=== PATIENT | female | born 1990 | race Asian ===

== ENCOUNTER 2020-02-26 15:08 | Inpatient (IN) | payer MEDICAID, OTHER ==
[~2020-02-26 15:08] MED LIST: Bupivacaine 0.25% HCL 30 ML VIAL ONE; Bupivacaine HCl 0.5%/Epinephrine 1:200,000/PF 30 ml Vial ONE; Bupivacaine/Epinephrine 0.25% 30 ML VIAL ONE; EPHEDRINE 25 MG/5 ML SYRINGE ONE; Lidocaine 2% MPF 10 ML AMP (For Epidural Use) ONE
[2020-02-26] MEDS ORDERED: Methylergonovine 0.2 MG TAB PO PRN (20:23)
[2020-02-26] MEDS ORDERED: Acetaminophen 500 MG TAB PO PRN (20:23)
[2020-02-26] MEDS ORDERED: Milk Of Magnesia 30 ML UDCUP PO PRN (20:23)
[2020-02-26] MEDS ORDERED: Methylergonovine 0.2 MG/ML VIAL IM PRN (20:23)
[2020-02-26] MEDS ORDERED: Promethazine HCl 25 MG/ML VIAL IM PRN (20:23)
[2020-02-26] MEDS ORDERED: Bisacodyl 10 MG SUPP PR PRN (20:23)
[2020-02-26] MEDS ORDERED: Ondansetron PF 4 MG/2 ML Vial IVP PRN (20:23)
[2020-02-26] MEDS ORDERED: hydrALAZINE 20 MG/ML VIAL SLOW IVP PRN (20:23)
[2020-02-26] MEDS ORDERED: Docusate Calcium (SURFAK) 240 MG CAP PO SCH (21:00)
--- NOTE | 2020-02-26 21:33 | PDOC.FPROB ---
FMR OB H&P: HPI - History of Present Illness Chief Complaint: mIOL for A2GDM History of Present Illness: Pt is a 29yo @ 37.4wks by 8.3wk delmi who presents for mIOL due to A2GDM. She was late to care, originally receiving care in [place]. She denies any LOF, vag bleeding, discharge, dysuria, headache, NVD, vision changes, LE swelling. + FM. Patient does desire epidural. She has been taking metformin for her A2GDM. Primary Care Physician: ANASTSAIA Champion FMR OB H&P: Current - Care : 1 Para: 0 Gestational age: 37.4 Due date: 03/14/20 Dating Criteria: 8.3 wk ziyado Course/Complications: A2GDM, obesity, gHTN, late to care - OB Labs Blood type: B RH: positive Antibody Screen: negative HIV: negative RPR: negative HepBsAg: negative Rubella: immune Gonorrhea: negative Chlamydia: negative Pap Smear: NILM. 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 NILM - Surgical History Sx History: tonsillectomy - Social History Social History: no T/A/D - Family History Family History: ovarian and breast cancer, father with lauren ataxia, one family member with congenital hearing loss FMR OB H&P: Medications - Current Home Medications: Medication Instructions Recorded Confirmed Type 21/Iron Fu/Folic Acid 1 tablet PO DAILY 02/26/20 02/26/20 History [ Complete Caplet] metFORMIN [Glucophage] 500 mg PO BID-WM 02/26/20 02/26/20 History Allergies/Adverse Reactions: Allergies Allergy/AdvReac Type Severity Reaction Status Date / Time No Known Allergies Allergy Verified 02/26/20 19:36 FMR OB H&P: ROS - Review of Systems General: denies: fever/chills, weight/appetite/sleep changes, night sweats, fatigue Eyes: denies: vision changes, scotomas, floaters ENT: denies: nasal congestion, rhinorrhea, sinus pain/pressure, sore throat Cardiovascular: denies: chest pain, palpitation, edema Respiratory: denies: cough, congestion, shortness of breath Gastrointestinal: denies: abdominal pain, nausea, vomiting, diarrhea, constipation Genitourinary (Female): denies: dysuria, vaginal discharge, vaginal pain, vaginal bleeding, contractions, vaginal pressure Musculoskeletal: denies: pain, tenderness, swelling Integumentary: denies: itching, rash Breast: denies: skin changes FMR OB H&P: Vital Signs - Heart Tones Baseline: 150 Variability: moderate Acceleration: absent Deceleration: absent Category: category 1 [place] contractions every: irregular FMR OB H&P: Physical Exam - Physical Exam General: NAD, awake, alert and oriented HEENT: normocephalic and atraumatic, PERRLA, EOMI, MMM Neck: supple, FROM Chest: non-tender to palpation Heart: RRR, normal S1/S2, no murmurs/rubs/gallops General: CTAB, no respiratory distress, good air movement, no rales/rhonchi, no wheezing, no retractions Abdomen: soft, gravid, non-tender Musculoskeletal: FROM in all four extremities Skin: no rash, good tugor, capillary refill <2 seconds Psychiatric: intact recent and remote memory, good judgement and insight, normal mood and affect - Pelvic Exam SVE: 250/-2 Rob score: 4 Membranes: intact FMR OB H&P: A/P Discussion: Date/Time: 02/26/202016 #mIOL for A2GDM - admit to L&D for mIOL - SVE 2/50/-2, rob score of 4. Will start with cytotec - Monitor FHT; currently 150s, mod variability, cat 1 - US for EFW due to concern for LGA. Previous US 1 week ago with FW of 3200g. - Desires epidural #A2GDM - monitor sugars q4hr, SS for sugars > 110 - hold metformin #Obesity - aware #gHTN - Monitor BPs for severe range. So far at goal. If severe range, will work up for Pre-E. This H&P was discussed with Dr. Bernice Najera and Dr. Gómez Nagel who agree with the above documentation and plan. Patient is a 29yo here for mIOL due to A2GDM, uncontrolled. Will admit to L &D for labor. Will get US with EFW. Rob score of 4 with SVE of 2/50/-2. Will likely start with cytotech if EFW <4500g. Will recheck in 4 hours. Will check sugars q4hrs and give SS as needed for sugars >110. Will monitor BPs, so far BPs at goal. Discussed with Dr. Nagel. --- Bernice Najera MD Addendum - Attending - Attending Attestation Date/Time: 02/27/20 6236 I discussed the management with Dr. Delcid last night and personally evaluated the patient with Dr Hauser this morning. I agree with the History, Examination, Assessment and Plan documented above with any addition or exceptions noted below. Cervix remains unfavorable. Repeat dose of cytotex. Patient may have epidural when she is ready.
[2020-02-26 21:38] VITALS: BMI 32.5
[2020-02-26 21:57] LABS: Hemoglobin 13.9 g/dL (12.0-16.0); Mean Corpuscular Hemoglobin 31.3 pg (27.0-31.0); Mean Corpuscular Volume 92.1 fL (78.0-98.0); Mean Platelet Volume 10.2 fL (7.4-10.4); Platelet Count 177 thou/uL (130-400); RBC Distribution Width 12.4 % (11.5-14.5); Red Blood Cell (RBC) Count 4.45 mill/uL (4.20-5.40); White Blood Cell (WBC) Count 9.2 thou/uL (4.8-10.8)
[2020-02-26] MEDS ORDERED: NS / Oxytocin 40 units/1000ml 1,000 ML IV SCH (22:00)
[2020-02-26 22:06] LABS: Glucose 86 mg/dL (70-105)
[2020-02-26] MEDS ORDERED: Lidocaine 1% (PF) 30 ML VIAL SC PRN (22:19)
[2020-02-26] MEDS ORDERED: NS / Oxytocin 40 units/1000ml 1,000 ML IV PRN (22:19)
[2020-02-26 22:26] LABS: HBSAg Index 0.14 S/CO (0-0.99); Hep B Surf Ag Non-Reactive S/CO (NonReactive); Syphilis Antibody Nonreactive (Nonreactive); Syphilis Antibody Index 0.02 S/CO (<1.00 Non-Reactive)
[2020-02-26] MEDS: Misoprostol 100 MCG TAB VAG SCH (22:50)
--- NOTE | 2020-02-27 02:49 | PDOC.LDPN ---
Labor & Delivery Progress Note - Subjective Subjective: comfortable - Objective Vital signs reviewed and normal: yes General: NAD, resting Uterine fundus: non tender SVE: 250/-3 FHT: category 1, variability present [place] contractions every: irregular -: #mIOL for A2GDM not well controlled and Gest HTN. - admit to L&D for mIOL - SVE 250/-2, unchanged from previous check, rob score of 4, gave 2nd dose of cytotec - Monitor FHT; currently 150s, mod variability, cat 1 - US for EFW 3400g - Desires epidural #A2GDM - monitor sugars q4hr, SS for sugars > 110 - hold metformin - most recent BS 96 #Obesity - aware #gHTN - Monitor BPs for severe range. So far at goal. If severe range, will work up for Pre-E.
[2020-02-27] MEDS ORDERED: Butorphanol Tartrate 1 MG/ML VIAL ONE (07:36)
[2020-02-27] MEDS: Lactated Ringer's 1,000 ML IV SCH ×3 (07:45→13:09)
[2020-02-27] MEDS ORDERED: Misoprostol 100 MCG TAB VAG ONE (07:49)
[2020-02-27] MEDS ORDERED: Butorphanol Tartrate 1 MG/ML VIAL SLOW IVP ONE (07:49)
[2020-02-27] MEDS: Misoprostol 100 MCG TAB VAG SCH (07:57)
[2020-02-27] MEDS ORDERED: Ferrous Sulfate 325 MG TAB PO SCH (08:00)
--- NOTE | 2020-02-27 08:44 | PDOC.LDPN ---
Labor & Delivery Progress Note - Subjective Subjective: other (mild abd pain) - Objective Vital signs reviewed and normal: yes General: NAD, resting Dilation: 2 Effacement: 50% Station: -3 FHT: category 1 [place] contractions every: uterine irritability Plan: continue plan of care, labor augmentation -: #mIOL for A2GDM not well controlled and Gest HTN. - SVE 250/-2 ([place] 3-4). Unchanged, will give cytotec #3 - FHT: Cat I/ [place]: Uterine irritability - US for EFW 3400g - Desires epidural - stadol x1 for some uterine discomfort #A2GDM - monitor sugars q4hr, SS for sugars > 110 - hold metformin - most recent BS 96 #Obesity - aware #gHTN - Monitor BPs for severe range. So far at goal. If severe range, will work up for Pre-E.
[2020-02-27] MEDS ORDERED: Adacel (T-DAP) 0.5 ML SYRINGE IM ONE (09:00)
--- NOTE | 2020-02-27 09:14 | ULT ---
OB ULTRASOUND: Date: 02/26/2020 PROVIDED CLINICAL HISTORY: Gestational diabetes. FINDINGS: No comparisons. A single, live intrauterine gestation is documented in vertex presentation, with estimated gestationa l age based on ultrasound of 38 weeks and 6 days. Estimated weight is 3490 +/- 517 gm. Placenta is anteriorly located without evidence for previa. Amniotic fluid volume appears adequate for gestat ional age. anatomic survey was not performed. Biometry: BPD: 9.6 cm, 39 weeks/0 days HC: 33.9 cm, 39 weeks/0 days AC: 33.4 cm, 37 weeks/2 days FL: 7.9 cm, 40 weeks/2 days heart rate of 133 beats/minute is documented. The traveling crane operator indicates movement was identified. IMPRESSION: Single, live intrauterine gestation as described above. POS: REILLY
--- NOTE | 2020-02-27 11:36 | PDOC.LDPN ---
Labor & Delivery Progress Note - Subjective Subjective: comfortable - Objective Vital signs reviewed and normal: yes General: NAD, resting Uterine fundus: non tender Dilation: 3 Effacement: 75% Station: -2 FHT: category 1 [place] contractions every: uterine irritability Plan: pitocin for augmentation -: #mIOL for A2GDM not well controlled and Gest HTN. - SVE 2/50/-2 ([place] 3-4). Unchanged, will give cytotec #3 - SVE /75/-2 ([place] 8). Will start pitocin, titrate as necessary - FHT: Cat I/ [place]: uterine irritability - US for EFW 3400g - Desires epidural - stadol x1 for some uterine discomfort #A2GDM - monitor sugars q4hr, SS for sugars > 110 - hold metformin - most recent BS 91 #Obesity - aware #gHTN - Monitor BPs for severe range. So far at goal. If severe range, will work up for Pre-E.
[2020-02-27] MEDS ORDERED: NS w/ Oxytocin 10 units 500 ML IV SCH (11:45)
[2020-02-27] MEDS ORDERED: Fentanyl 4 mcg/Bup 0.1% Cadd 100 ML ONE ×2 (11:54→21:15)
[2020-02-27] MEDS ORDERED: diphenhydrAMINE 50 MG/ML VIAL IVP PRN (13:04)
[2020-02-27] MEDS ORDERED: Acetaminophen 325 MG TAB PO PRN (13:04)
[2020-02-27] MEDS ORDERED: Naloxone HCl 0.4 mg/ml Vial IVP PRN ×2 (13:04)
[2020-02-27] MEDS ORDERED: EPHEDRINE 25 MG/5 ML SYRINGE SLOW IVP PRN (13:04)
[2020-02-27] MEDS ORDERED: Promethazine HCl 25 MG/ML VIAL IM PRN (13:04)
[2020-02-27] MEDS ORDERED: Lactated Ringer's 500 ML IV PRN (13:04)
[2020-02-27] MEDS ORDERED: Ondansetron PF 4 MG/2 ML Vial IVP PRN (13:04)
[2020-02-27] MEDS ORDERED: Communication Order-Pharmacy FS SCH (13:15)
[2020-02-27] MEDS: Fentanyl 4 mcg/Bupivacaine 0.1% Cassette 100 ML EPIDURAL SCH ×2 (13:18→21:20)
--- NOTE | 2020-02-27 15:24 | PDOC.LDPN ---
Labor & Delivery Progress Note - Subjective Subjective: comfortable - Objective Vital signs reviewed and normal: yes General: NAD Uterine fundus: non tender Dilation: 3 Effacement: 75% Station: -2 FHT: category 2 [place] contractions every: every 3-4 minutes Plan: continue plan of care -: #mIOL for A2GDM not well controlled and Gest HTN. - SVE 2/50/-2 ([place] 3-4). Unchanged, will give cytotec #3 - SVE /75/-2 ([place] 8). Will start pitocin, titrate as necessary - SVE: /75/-2. Pit at 8 - FHT: Cat I/ [place]: 140s, minimal variability, no accels, cat II -- will give patient juice - US for EFW 3400g - Desires epidural - stadol x1 for some uterine discomfort #A2GDM - monitor sugars q4hr, SS for sugars > 110 - hold metformin - most recent BS 79 #Obesity - aware #gHTN - Monitor BPs for severe range. So far at goal. If severe range, will work up for Pre-E.
[2020-02-27 16:03] LABS: SARS-CoV-2 MS2 Positive; SARS-CoV-2 N Gene Negative; SARS-CoV-2 S Gene Negative; SARS-CoV-2 by NAA Not Detected (NotDetected); SARS-CoV-2 orf1ab Negative
[2020-02-27] MEDS ORDERED: Fentanyl 100 MCG/2 ML VIAL ONE ×2 (17:13→19:32)
--- NOTE | 2020-02-27 20:59 | PDOC.LDPN ---
Labor & Delivery Progress Note - Subjective Subjective: comfortable - Objective Abnormal vital signs: HR 125 General: NAD, resting, breathing through contractions Dilation: 3 Effacement: 75% Station: -2 FHT: category 1 [place] contractions every: 1-3 minutes Other exam findings: SROM with trace meconium @ cervical check @ ~1800 IUPC placed: yes Resuscitative measures: maternal IV fluids Plan: pitocin for augmentation -: #mIOL for uncontrolled A2GDM and gHTN - SVE /-2 @ 1800 & pit temporarily dc'd 08/02 intractable pain from inadequate anesthesia. SROM shortly before last cervical check with trace meconium stained fluid noted per nurse. - New epidural now in place & patient MUCH more comfortable. IUPC placed and patient having inadequate contractions. Will restart pitocin & titrate to achieve adequate contractions as tolerated by the patient & fetus. - Current FHTs: Cat I, baseline 140s, moderate variability, + accels, no decels #A2GDM - monitor sugars q4hr, SS for sugars > 110 - hold metformin - most recent BS 90 @ ~1600 #Obesity - aware #gHTN - Monitor BPs for severe range. So far at goal. If severe range, will work up for Pre-E & give PRN meds. Dispo: Will recheck in ~2 hours to assess for cervical change. Addendum - Attending - Attending Attestation Date/Time: 02/27/202114 I personally evaluated the patient and discussed the management with Dr. Champion. I agree with the History, Examination, Assessment and Plan documented above with any addition or exceptions noted below. We reviewed the care plan with Lakia and Luis Manuel. They are relieved that the new epidural is working well.
--- NOTE | 2020-02-28 03:31 | PDOC.LDPN ---
Labor & Delivery Progress Note - Subjective Subjective: painful contractions - Objective Vital signs reviewed and normal: yes General: NAD Uterine fundus: non tender Dilation: 9 Effacement: 100% Station: 0 FHT: category 1 AROM: meconium stained fluid IUPC placed: yes Resuscitative measures: maternal IV fluids, maternal position change Plan: continue plan of care, labor augmentation, pitocin for augmentation -: #mIOL for uncontrolled A2GDM and gHTN - SVE /-2 @ 1800 & pit temporarily dc'd 2/2 intractable pain from inadequate anesthesia. SROM shortly before @ 1575 cervical check with trace meconium stained fluid noted per nurse. - New epidural now in place & patient much more comfortable. IUPC placed. Pit restarted to titrate to achieve adequate contractions as tolerated by the patient & fetus. - Current FHTs: Cat I, baseline 140s, moderate variability, + accels, no decels #A2GDM - monitor sugars q4hr, SS for sugars > 110 - hold metformin - most recent BS 90 @ ~1600 #Obesity - aware #gHTN - Monitor BPs for severe range. So far at goal. If severe range, will work up for Pre-E & give PRN meds. Dispo: Will recheck in ~1 hours to assess for cervical change.
[2020-02-28] MEDS ORDERED: Fentanyl 4 mcg/Bup 0.1% Cadd 100 ML ONE (03:46)
[2020-02-28] MEDS: Fentanyl 4 mcg/Bupivacaine 0.1% Cassette 100 ML EPIDURAL SCH (03:53)
[2020-02-28] MEDS ORDERED: Fentanyl 100 MCG/2 ML VIAL ONE ×2 (05:09→11:48)
[2020-02-28] MEDS ORDERED: Azithromycin 500 MG VIAL ONE (10:14)
[2020-02-28] MEDS ORDERED: CEFAZOLIN 2 GM in Premix Bag 1 BAG IVPB SCH (10:15)
[2020-02-28] MEDS ORDERED: Azithromycin 500 MG in Sodium Chloride 0.9% 250 ML 250 ML IVPB SCH (10:15)
[2020-02-28] MEDS ORDERED: Bicitra 30 ML UDCUP PO SCH (10:15)
[2020-02-28] MEDS ORDERED: Oxytocin 10 UNITS/ML VIAL ONE (10:28)
[2020-02-28] MEDS ORDERED: EPHEDRINE 25 MG/5 ML SYRINGE ONE (10:28)
[2020-02-28] MEDS ORDERED: PROPOFOL 0 ML ONE (10:28)
[2020-02-28] MEDS ORDERED: MORPHINE 5 MG/10 ML PF VIAL ONE (10:28)
[2020-02-28] MEDS ORDERED: Ketorolac Tromethamine 30 MG/ML VIAL ONE (10:28)
[2020-02-28] MEDS ORDERED: Succinylcholine Chloride 20 MG/ML 10 ml SYRINGE FS ONE (10:28)
--- NOTE | 2020-02-28 10:37 | PDOC.BPN ---
- Brief Progress Note Patient reached complete cervical dilation about 6am. Nurs pushed with patient for alomst an hour, then the patietn pushed with our team of doctors for over 2 hours. station did not change signifiacntly, remainign about +2 station with increasing caput. FHT baseline became tachycardic with minimal variability adnintermittent late decels during the final hour of pushing. Because of the lack of descent and Cat 2 tracing, I advised that a delivery was safest approach to an expedited deliver, I/R/B/A discussed a part of this conversation. Consideration for vacuum assistance was given, but A2GDM and arrest of descent in the second stage of labor caused significant concern for shoulder dystocia. Luis Manuel and Lakia expressed their disappointment that was needed, but consented to delivery.
[2020-02-28] MEDS ORDERED: Misoprostol 200 MCG TAB ONE (10:52)
[2020-02-28] MEDS ORDERED: Carboprost 250 MCG/ML AMP ONE (11:09)
[2020-02-28] MEDS ORDERED: PHENYLEPHRINE-NS 100 MCG/ML 10 ML SYRINGE ONE (11:11)
[2020-02-28] MEDS ORDERED: Bupivacaine 0.25% HCL 30 ML VIAL ONE (11:17)
[2020-02-28 11:24] LABS: Actual Bicarbonate (HCO3a) 22.9 mEq/L (22-28); Base Excess (BEa) -6.2 mEq/L (-2.0 to +3.0)
[2020-02-28] MEDS ORDERED: Midazolam HCl 2 mg/2 ml Vial ONE (11:24)
[2020-02-28 11:25] LABS: Actual Bicarbonate (HCO3v) 23 mEq/L (22-28); Base Excess -4.7 mEq/L (-2.0 to +3.0); pH (Cord, venous) 7.26 (7.32-7.43)
[2020-02-28] MEDS ORDERED: Ketamine 50 MG/ML (10ML VIAL) ONE (11:48)
--- NOTE | 2020-02-28 12:32 | PDOC.CONS ---
- Consultation I was called to the operating room by Dr. Nagel for assistance repairing an extension of the hysterotomy following the delivery of a male for nonreassuring status and arrest of descent after pushing for 2 hours. After examining the patient, the hysterotomy was noted to have an extension on the left side, tracking deep inferiorly and completely transecting the cervix. A branch of the uterine artery was also noted to be involved and bleeding briskly. Due to the depth of the extension and proximity to the ureter, I called for Dr. Bernard or Jordon for assistance in the repair, both of whom were present. The cervical laceration was repaired using 0-monocryl. Hemostasis of the extension and involved bleeding artery was obtained with an O' [place] stitch. The extension was then repaired and then incorporated into the hysterotomy repair, which was closed with 0 Monocryl with good hemostasis throughout. Floseal was applied across the repair and good hemostasis was again noted. For full details on the remainder of the surgery, please see the operative report by Dr. Nagel.
[2020-02-28] MEDS ORDERED: Naloxone HCl 0.4 mg/ml Vial IV PRN (13:08)
[2020-02-28] MEDS ORDERED: Naloxone HCl 0.4 mg/ml Vial IVP PRN ×2 (13:08)
[2020-02-28] MEDS ORDERED: Ondansetron HCl/PF 4 MG/2 ML Vial IVP PRN (13:08)
[2020-02-28] MEDS ORDERED: Ketorolac Tromethamine 30 MG/ML VIAL IVP PRN (13:08)
[2020-02-28] MEDS ORDERED: Promethazine HCl 25 MG SUPP PR PRN (13:08)
[2020-02-28] MEDS ORDERED: L&D-Morphine 4 MG/ML VIAL SLOW IVP PRN (13:08)
[2020-02-28] MEDS ORDERED: Ondansetron PF 4 MG/2 ML Vial IVP PRN (13:08)
[2020-02-28] MEDS ORDERED: Meperidine HCl/PF 25 MG/ML VIAL SLOW IVP PRN (13:08)
[2020-02-28] MEDS ORDERED: Promethazine HCl 25 MG/ML VIAL IM PRN (13:08)
[2020-02-28] MEDS ORDERED: HYDROmorphone 2 MG/ML VIAL SLOW IVP PRN (13:08)
[2020-02-28] MEDS ORDERED: diphenhydrAMINE 50 MG/ML VIAL IVP PRN (13:08)
[2020-02-28] MEDS ORDERED: Communication Order-Pharmacy FS SCH (13:15)
[2020-02-28] MEDS ORDERED: Ketorolac Tromethamine 30 MG/ML VIAL IVP SCH (13:15)
--- NOTE | 2020-02-28 13:52 | PDOC.OPDEL ---
OB Operative/Delivery Note - Additional Findings/Plan Compilations/Other Findings: Date of Procedure: 02/28/2020 Resident Surgeons: Dr. Deysi Champion (PGY3, continuity provider), Dr. Cesia Elias Family Services Manager Surgeon: Dr. Graciela Allison (PGY1) Attending Surgeon: Dr. Juan José Nagel, present and assisting during entire procedure Intra-Operative Consult: Nuclear Auxiliary Operator Laborist, Dr. Cummings. Additional assistance provided by Dr. Bernard & Dr. Ruvalcaba. Procedure: Primary low transverse caesarean section Anesthesia: epidural Quantitative Blood Loss: 1920 mL Complications: hemorrhage requiring transfusion of 2 units packed red blood cells. Specimens: Arterial and venous cord gases. Cord blood sent to lab for blood type. Findings: Grossly normal male infant with Apgars of 8 and 9 at 1 an 5 minutes of life, respectively. Grossly normal placenta with 3 vessel cord discarded. Drains: Duncan to gravity draining blood-tinged urine. Preoperative Diagnosis: 1) Term intrauterine 2) A2GDM 3) Gestational HTN 4) Obesity 5) Late transfer of care 6) Arrest of second stage of labor 7) Persistent Category 2 FHT tracing Postoperative Diagnosis: 1) Term intrauterine , delivered by PLTCS 2) A2GDM 3) Gestational HTN 4) Obesity 5) Late transfer of care 6) Arrest of second stage or labor 7) hemorrhage Indications: The patient is a 29 year old female at 37.6 weeks gestation who presented to L&D for medically indicated induction of A2GDM, followed by arrest of descent and non-reassuring heart tones Procedure in Detail: After risks, benefits, and alternatives were explained to the patient, she gave informed consent. Pre-operative antibiotics included Cefazolin 2 gram IV and Azithromycin 500mg IV. The patient was taken to the operating room, and epidural anesthesia was re-dosed. She was placed in the supine position with a left tilt and prepped and draped in usual sterile fashion. A Pfannenstiel incision was made with a scalpel and carried down to the level of the fascia which was sharply nicked. The fascial cut was extended bilaterally with Berger scissors. The inferior and superior edges of the cut fascial edges were elevated with Héctor clamps, and the underlying rectus muscles were sharply and bluntly dissected free. The recti were divided digitally and retracted manually. The peritoneum was entered bluntly and retracted manually. Bladder blade was placed. A low transverse score was made with the scalpel, and the uterus was entered in the midline bluntly. Clear fluid was seen. The hysterotomy was widened manually in a cephalo-cadual fashion. The was noted to be vertex and was delivered by flexion of the head and lift out of pelvis followed by fundal pressure. Mouth and nares were bulb suctioned. Cord clamped and cut; cord section for gases was obtained. Grossly normal male was handed to waiting nurse at the [facility]. Cord blood was obtained. Placenta was manually extracted, found to be intact with 3 vessel cord and discarded. The uterus was externalized, and the endometrium was curetted with a dry lap. Uterus was boggy, so hemabate was given aong with IV pitocin. The bladder blade was replaced. Brisk bleeding was noted to be coming from a left extension of the hysterotomy, which tracked inferiorly and into the cervix. Ring clamps were placed and pressure applied for temporary hemostasis when consult for laborist Dr. Cummings was called. Dr. Cummings evaluated the extension and called Dr. Bernard and Dr. Ruvalcaba. The extension involved a branch of the uterine artery. Repair was completed with 0-Monocryl and O'[place] stitch around branch of the uterine artery. The rest of the hysterotomy was closed in a running locking fashion with 0-Monocryl and noted to be hemostatic. The abdomen was irrigated with saline and suctioned free of clots. Uterus was internalized. Floseal was applied; hysterotomy was again noted to be hemostatic. Intraoperative EBL was monitored, and together with maternal clinical assessment by Dr Dukes, the decision was made to proceed with PRBC transfusion of 2 units. The fascia was closed with a running non-locking 0-Vicryl suture. Peritoneum was closed with running non-locking 3-0 vicryl suture. The subcutaneous tissue was closed with 4 interrupted sutures using 2-0 chromic. The skin was approximated with buck, and a dressing was placed. All counts were correct. The patient tolerated the procedure well and was taken to the recovery room in stable condition with a unit of blood transfusing. Post delivery plan: routine recovery
[2020-02-28] MEDS ORDERED: Meperidine HCl/PF 25 MG/ML VIAL ONE (13:57)
[2020-02-28] MEDS ORDERED: hydrALAZINE 20 MG/ML VIAL SLOW IVP PRN (15:47)
[2020-02-28] MEDS ORDERED: Adacel (T-DAP) 0.5 ML SYRINGE IM ONE (15:47)
[2020-02-28] MEDS: Lactated Ringer's 1,000 ML IV SCH ×2 (15:57→17:04)
[2020-02-28] MEDS: Prenatal Vitamin 1 TAB PO SCH (17:01)
[2020-02-28 18:13] LABS: Hemoglobin 11.7 g/dL (12.0-16.0)
--- NOTE | 2020-02-28 18:13 | PDOC.BPN ---
- Brief Progress Note S: Patient is doing well, baby is on chest. She feels a bit "loopy," but has no complaints. Pain is minimal. O: vitals stable, 50cc/hr urine output. Urine is clearing up from immediately following surgery. A/P: 29 yo G1 now P1 4hr post op pLTCS with extension of hysterotomy into cervix. - s/p 2u pRBC - H/H @ 1800 - Continue routine care
[2020-02-28] MEDS: Docusate Calcium (SURFAK) 240 MG CAP PO SCH (20:21)
[2020-02-29] MEDS: Lactated Ringer's 1,000 ML IV SCH ×2 (00:54→11:33)
[2020-02-29 06:19] LABS: Mean Corpuscular HGB CONC 33.9 g/dL (32.0-36.0); Mean Corpuscular Hemoglobin 31.2 pg (27.0-31.0); Mean Corpuscular Volume 91.9 fL (78.0-98.0); Platelet Count 108 thou/uL (130-400); RBC Distribution Width 12.4 % (11.5-14.5); Red Blood Cell (RBC) Count 2.89 mill/uL (4.20-5.40); White Blood Cell (WBC) Count 11.8 thou/uL (4.8-10.8)
--- NOTE | 2020-02-29 06:49 | PDOC.OBPPN ---
FMR OB PN: Subj - Interval History Hospital Day: 4 Day: 1 Chief Complaint: Some abdominal pain with movement. Indentification: G1 now P1 who is PP day #1 s/p pLTCS for failure to progress in 2nd stage Interval History: Patient received 2U PRBCs following surgery 2/2 PPH. FMR OB PN: Obj - Maternal Vital signs: BP: 96/51 HR: 120 RR: 16 Tmax: 98.9F Pox: 96% on RA Wt: 93 kg - Urine output I&O: 02/27/20 02/28/20 02/29/20 06:59 06:59 06:59 Intake Total 1859 Output Total 2476 Balance -617 - Lochia Lochia: minimal - Pain Management Pain scale: 0 Intervention: oral medication FMR OB PN: Exam - Physical Exam General: NAD, awake, alert and oriented HEENT: normocephalic and atraumatic, MMM, conjunctiva clear, grossly normal vision, grossly normal hearing Neck: supple, FROM Heart: normal S1/S2, no murmurs/rubs/gallops, no edema Deviation from normal: tachycardic but regular rhythm General: CTAB, no respiratory distress, good air movement Abdomen: soft, fundus(cm) (firm below umbilicus) Musculoskeletal: normal gait and station, FROM in all four extremities Neurological: cranial nerves II through XII intact, sensation to pain,touch and proprioception grossly normal, no focal deficit Skin: no rash, good tugor : bandage intact (clean & dry on exam) Lymphatic: no unusual bruising or bleeding Psychiatric: intact recent and remote memory - Pelvic Exam : no discharge, no edema, normal lochia FMR OB PN: Data - Labs Lab results: Laboratory Results - last 24 hr 02/26/20 02/28/20 02/28/20 19:55 11:10 11:11 WBC RBC Hgb Hct MCV MCH MCHC RDW Plt Count MPV Bicarbonate Actual 22.9 ABG Base Excess -6.2 L VBG HCO3 23 VBG Base Excess -4.7 L Cord ABG pH 7.201 L Cord ABG PCO2 (Jeremy) 59.9 H Cord VBG pH 7.26 L Cord VBG pCO2 52.5 POC Glucose Blood Type B POSITIVE Antibody Screen NEGATIVE Crossmatch See Detail 02/28/20 02/28/2002/28/20 11:39 18:00 00:21 WBC RBC Hgb 11.7 L Hct 33.5 L MCV MCH MCHC RDW Plt Count MPV Bicarbonate Actual ABG Base Excess VBG HCO3 VBG Base Excess Cord ABG pH Cord ABG PCO2 (Jeremy) Cord VBG pH Cord VBG pCO2 POC Glucose 98 99 Blood Type Antibody Screen Crossmatch 02/29/20 02/29/20 04:33 05:56 WBC 11.8 H RBC 2.89 L Hgb 9.0 L Hct 26.6 L MCV 91.9 MCH 31.2 H MCHC 33.9 RDW 12.4 Plt Count 108 L MPV 10.0 Bicarbonate Actual ABG Base Excess VBG HCO3 VBG Base Excess Cord ABG pH Cord ABG PCO2 (Jeremy) Cord VBG pH Cord VBG pCO2 POC Glucose 89 Blood Type Antibody Screen Crossmatch FMR OB PN: A/P - Problem List (1) care following delivery Current Visit: Yes Status: Acute Code(s): Z39.2 - ENCOUNTER FOR ROUTINE FOLLOW-UP (2) Gestational diabetes mellitus (GDM) Current Visit: Yes Status: Acute Code(s): O24.419 - GESTATIONAL DIABETES MELLITUS IN , UNSP CONTROL Qualifiers: Gestational diabetes mellitus control: oral hypoglycemic-controlled (3) Gestational hypertension Current Visit: Yes Status: Acute Code(s): O13.9 - GESTATIONAL HTN W/O SIGNIFICANT PROTEINURIA, UNSP TRIMESTER (4) Obesity Current Visit: Yes Status: Acute Code(s): E66.9 - OBESITY, UNSPECIFIED Disposition: 29YO G1 now P1001 who is PP day #1 s/p pLTCS for arrest of descent. #PP day #1 s/p pLTCS for arrest of descent: - Tolerating PO and passing gas. No voiding yet as russ still in. Pain controlled on current regimen. Incision covered with pressure dressing but dressing was clean & dry. Continue routine post-op care. #PPH: QBL ~1929mL & was given 2U PRBCs since delivery. Hgb down to 9.0 this AM & HR in 120s @ 0400. If still tachycardic @ next vital check with recheck H/H this afternoon & consider giving more blood products. #A2GDM - monitor sugars q4hr but max since admission 114 prior to delivery. All WNLs since delivery. Will check ACHS today & likely dc accuchecks tomorrow - Continue to hold metformin #Obesity - aware #gHTN - NL/low BPs since delivery & no severe range pressures since admission. If severe range, will work up for Pre-E & give PRN meds. Dispo: Will continue routine post-C/S care & continue to monitor VS closely for need for further transfusion. Discussion: Date/Time: 02/29/20 0391 This H&P was discussed with Dr. Houston who agree with the above documentation and plan. Addendum - Attending - Attending Attestation Date/Time: 02/29/20 1046 I personally evaluated the patient and discussed the management with Dr. Champion. I agree with the History, Examination, Assessment and Plan documented above with any addition or exceptions noted below. repeat CBC this afternoon due to persistent tachycardia. patient asymptomatic. Will consider additional transfusion of blood products if it continues to down trend.
[2020-02-29] MEDS: Prenatal Vitamin 1 TAB PO SCH (07:45)
[2020-02-29] MEDS: Docusate Calcium (SURFAK) 240 MG CAP PO SCH ×2 (07:46→21:49)
[2020-02-29] MEDS: HYDROcodone/Acetaminophen 5/325 mg Tablet PO PRN ×3 (09:23→23:10)
[2020-02-29] MEDS: Ibuprofen 800 MG TAB PO SCH ×2 (13:22→21:49)
[2020-02-29 14:17] LABS: Hemoglobin 10.6 g/dL (12.0-16.0)
[2020-02-29] MEDS: Lanolin Ointment 7 GM TUBE TOP PRN (18:17)
[2020-02-29] MEDS: Simethicone Chewable 80 MG TAB PO PRN (21:49)
[2020-03-01] MEDS: HYDROcodone/Acetaminophen 5/325 mg Tablet PO PRN ×5 (03:11→23:25)
[2020-03-01 05:42] LABS: Hemoglobin 8.9 g/dL (12.0-16.0)
[2020-03-01] MEDS: Ibuprofen 800 MG TAB PO SCH ×3 (05:56→21:26)
--- NOTE | 2020-03-01 06:58 | PDOC.OBPPN ---
FMR OB PN: Subj - Interval History Hospital Day: 5 Day: 2 Chief Complaint: Abodminal cramping & pain with movement. Indentification: G1 now P1001 who is PP day #2 s/p pLTCS for failure of descent. Interval History: Hgb continue to downtrend & HR still elevated. Limited movement 2/2 pain. FMR OB PN: Obj - Maternal Vital signs: BP: 106/64 HR: 107 RR: 14 Tmax: 99.0F Pox: 97% on RA Wt: 93 kg - Urine output I&O: 02/28/20 02/29/20 03/01/20 06:59 06:59 06:59 Intake Total 1859 Output Total 3153 1851 Balance -617 -1851 - Lochia Lochia: moderate - Pain Management Pain scale: 0 Intervention: oral medication FMR OB PN: Exam - Physical Exam General: NAD, awake, alert and oriented HEENT: normocephalic and atraumatic, MMM, grossly normal vision, grossly normal hearing Neck: supple, FROM Heart: normal S1/S2, no murmurs/rubs/gallops, no edema, other (tachycardic but regular rhythm) General: CTAB, no respiratory distress, good air movement Abdomen: soft, fundus(cm) (firm just above umbilicus) Musculoskeletal: FROM in all four extremities Neurological: cranial nerves II through XII intact, sensation to pain,touch and proprioception grossly normal, no focal deficit Skin: no rash : incision healing well, no erythema, no edema, no drainage, appropriately tender Lymphatic: no unusual bruising or bleeding Psychiatric: intact recent and remote memory, good judgement and insight, normal mood and affect - Pelvic Exam : no discharge, no edema, normal lochia FMR OB PN: Data - Labs Lab results: Laboratory Results - last 24 hr 02/29/20 02/29/20 02/29/20 13:30 14:05 17:34 Hgb 10.6 L Hct 31.7 L POC Glucose 91 124 H 02/29/20 03/01/20 03/01/20 22:10 05:29 06:05 Hgb 8.9 L Hct 26.9 L POC Glucose 132 H 103 FMR OB PN: A/P - Problem List (1) care following delivery Current Visit: Yes Status: Acute Code(s): Z39.2 - ENCOUNTER FOR ROUTINE FOLLOW-UP (2) Gestational diabetes mellitus (GDM) Current Visit: Yes Status: Acute Code(s): O24.419 - GESTATIONAL DIABETES MELLITUS IN , UNSP CONTROL Qualifiers: Gestational diabetes mellitus control: oral hypoglycemic-controlled (3) Gestational hypertension Current Visit: Yes Status: Acute Code(s): O13.9 - GESTATIONAL HTN W/O SIGNIFICANT PROTEINURIA, UNSP TRIMESTER (4) Obesity Current Visit: Yes Status: Acute Code(s): E66.9 - OBESITY, UNSPECIFIED Disposition: 29YO G1 now P1001 who is PP day #2 s/p pLTCS for arrest of descent. #PP day #2 s/p pLTCS for arrest of descent: - Tolerating PO, voiding, ambulating, and passing gas. Reports lochia is similar to menstruation. Pain semi-controlled on current regimen. Incision clean & dry & intact. Continue routine post-op care. #PPH: QBL ~2127mL since delivery. Is s/p 2U PRBCs since delivery. Hgb down to 8.9 this AM but HR improved. Will continue PNVs & PO iron. #post-op pain: Will add 2 tabs of [place] PRN in addition to CSAEY motrin today. Encouraged ambulation as some discomfort could also be from gas/constipation & ambulation with help with this. Adding PRN miralax & simethicone added overnight. #A2GDM - Will continue QID accuchecks today, fasting & 2hr PP, as max BG yesterday was 132 before dinner. - Continue to hold metformin for now. - Needs 6 week PP DM screening. #Obesity - aware #gHTN - NL/low BPs since delivery & no severe range pressures since admission. If severe range, will work up for Pre-E & give PRN meds. Dispo: Will continue routine post-C/S care & continue to monitor VS closely. Discussion: Date/Time: 03/01/20 0656 This H&P was discussed with Dr. Houston who agree with the above documentation and plan. Addendum - Attending - Attending Attestation Date/Time: 03/01/20 1000 I personally evaluated the patient and discussed the management with Dr. Champion. I agree with the History, Examination, Assessment and Plan documented above with any addition or exceptions noted below. Patient dizzy upon standing this morning. If this persists this afternoon in the context of persistently elevated pulse, will crossmatch and tx 1u PRBCs.
[2020-03-01] MEDS: Prenatal Vitamin 1 TAB PO SCH (07:48)
[2020-03-01] MEDS: Ferrous Sulfate 325 MG TAB PO SCH ×2 (07:48→18:38)
[2020-03-01] MEDS: Docusate Calcium (SURFAK) 240 MG CAP PO SCH ×2 (07:48→21:26)
[2020-03-01] MEDS: Simethicone Chewable 80 MG TAB PO PRN ×2 (07:48→20:29)
[2020-03-01] MEDS ORDERED: Polyethylene Glycol 3350 17 GM Packet PO PRN (08:06)
--- NOTE | 2020-03-01 14:48 | PDOC.BPN ---
- Brief Progress Note Pt is a 29 yo who is PP day 2. She is resting comfortably in bed. She is still tachycardic and on exam, at rest, is at 120. She endorses dizziness whenever she gets up to walk and she looks pale. Her H/H was 8.9/26.9 this morning which was down from previous H/H. Discussed the plan to transfuse 1 U packed RBCs and recheck H/H in the AM. She agreed with the plan and voiced understanding.
[2020-03-01] MEDS: Lanolin Ointment 7 GM TUBE TOP PRN (21:25)
[2020-03-02] MEDS: HYDROcodone/Acetaminophen 5/325 mg Tablet PO PRN ×3 (03:18→13:15)
[2020-03-02] MEDS: Ibuprofen 800 MG TAB PO SCH ×2 (05:25→13:14)
--- NOTE | 2020-03-02 06:50 | PDOC.OBPPN ---
FMR OB PN: Subj - Interval History Hospital Day: 6 Day: 3 Indentification: G1 now P1 who is PP day #3 s/p pLTCS for failure of descent. Interval History: Now s/p 3U PRBCs since surgery. HR improved this AM. Pain controlled. FMR OB PN: Obj - Maternal Vital signs: BP: 125/73 HR: 104 RR: 16 Tmax: 99.1F Pox: 97% on RA Wt: 93 kg - Urine output I&O: 02/29/20 03/01/20 03/02/20 06:59 06:59 06:59 Intake Total 1859 700 Output Total 2476 5611 1200 Balance -617 -1851 -500 - Lochia Lochia: minimal - Pain Management Intervention: oral medication FMR OB PN: Exam - Physical Exam General: NAD, awake, alert and oriented HEENT: MMM, conjunctiva clear, grossly normal vision, grossly normal hearing Neck: supple, FROM Heart: normal S1/S2, no edema, other (tachycardic with regular rhythm) General: CTAB, no respiratory distress Abdomen: soft, fundus(cm) (firm above umbilicus) Musculoskeletal: FROM in all four extremities Neurological: cranial nerves II through XII intact, sensation to pain,touch and proprioception grossly normal, no focal deficit Skin: no rash : incision healing well, no erythema, no edema, no drainage, appropriately tender Lymphatic: no unusual bruising or bleeding Psychiatric: intact recent and remote memory, good judgement and insight, normal mood and affect - Pelvic Exam : no discharge, no edema, normal lochia FMR OB PN: Data - Labs Lab results: Laboratory Results - last 24 hr 02/26/20 03/01/20 03/01/20 19:55 11:21 13:22 POC Glucose 145 H 96 Blood Type Antibody Screen Ab Screen Tube Method Crossmatch See Detail 03/01/20 03/01/20 03/01/20 15:07 18:07 21:48 POC Glucose 121 H 134 H Blood Type B POSITIVE Antibody Screen Cancelled Ab Screen Tube Method NEGATIVE Crossmatch See Detail 03/02/20 05:37 POC Glucose 86 Blood Type Antibody Screen Ab Screen Tube Method Crossmatch FMR OB PN: A/P - Problem List (1) care following delivery Current Visit: Yes Status: Acute Code(s): Z39.2 - ENCOUNTER FOR ROUTINE FOLLOW-UP (2) Gestational diabetes mellitus (GDM) Current Visit: Yes Status: Acute Code(s): O24.419 - GESTATIONAL DIABETES MELLITUS IN , UNSP CONTROL Qualifiers: Gestational diabetes mellitus control: oral hypoglycemic-controlled (3) Gestational hypertension Current Visit: Yes Status: Acute Code(s): O13.9 - GESTATIONAL HTN W/O SIGNIFICANT PROTEINURIA, UNSP TRIMESTER Qualifiers: Trimester: unspecified trimester Qualified Code(s): O13.9 - Gestational [ -induced] hypertension without significant proteinuria, unspecified trimester (4) Obesity Current Visit: Yes Status: Acute Code(s): E66.9 - OBESITY, UNSPECIFIED Disposition: 29YO G1 now P1001 who is PP day #3 s/p pLTCS for arrest of descent. #PP day #3 s/p pLTCS for arrest of descent: - Tolerating PO, voiding, ambulating, and passing gas. Reports lochia is similar to menstruation. Pain controlled on current regimen. Incision clean & dry & intact. Continue routine post-op care. #PPH: QBL ~2127mL since delivery. Now s/p 3U PRBCs since delivery. Hgb up to ? this AM & HR improved. Will continue PNVs & PO iron PP for at least 3 months. #post-op pain: Continue [place] PRN & CASEY motrin today. Will also continue PRN miralax & simethicone added overnight. #A2GDM - 1/4 BG levels WNLs y-day w/ accuchecks. Will continue QID accuchecks today. So far AM fasting WNLs. - Continue to hold metformin. - Needs 6 week PP DM screening. #Obesity - aware #gHTN - BPs WNLs since delivery & no severe range pressures since admission. If severe range, will work up for Pre-E & give PRN meds. Dispo: Will continue routine post-C/S care & continue to monitor VS closely. Anticipate likely d/c home today with close follow-up vs. tomorrow due to excessive infant weight loss/ difficulties. Discussion: Date/Time: 03/02/20 0648 This H&P was discussed with Dr. Houston who agrees with the above documentation and plan. Addendum - Attending - Attending Attestation Date/Time: 03/02/20 0910 I personally evaluated the patient and discussed the management with Dr. Champion. I agree with the History, Examination, Assessment and Plan documented above with any addition or exceptions noted below. Feeling better after blood tx yesterday. Will d/c home today. F/U 1 wk at [facility]. buck removed today. sent rx for norco.
[2020-03-02 06:56] LABS: Hemoglobin 10.1 g/dL (12.0-16.0); Platelet Count 141 thou/uL (130-400)
[2020-03-02 08:11] VITALS: BP 122/84; TEMP 97.9
[2020-03-02] MEDS: Prenatal Vitamin 1 TAB PO SCH (08:27)
[2020-03-02] MEDS: Docusate Calcium (SURFAK) 240 MG CAP PO SCH (08:27)
[2020-03-02] MEDS: Simethicone Chewable 80 MG TAB PO PRN (08:32)
[2020-03-02] MEDS: Lanolin Ointment 7 GM TUBE TOP PRN (13:15)
[2020-03-03] MEDS ORDERED: Ferrous Sulfate 325 MG TAB PO SCH (07:30)
== END 2020-03-02 14:50 | disposition home or self-care (01) | DRG 787 ==
LOC: L&D 18:15 → 3SW 02-28 16:10 → EDSTATUS 03-30 15:07
PROVIDERS: ADMIT Family Medicine; ATTEND Family Medicine
PROC: 10D00Z1 Extraction of Products of Conception, Low, Open Approach (ICD-10-PCS; principal; 2020-02-28)
PROC: 0UQC7ZZ Repair Cervix, Via Natural or Artificial Opening (ICD-10-PCS; 2020-02-28)
PROC: 3E0P7VZ Introduction of Hormone into Female Reproductive, Via Natural or Artificial Opening (ICD-10-PCS; 2020-02-28)
PROC: 3E033VJ Introduction of Other Hormone into Peripheral Vein, Percutaneous Approach (ICD-10-PCS; 2020-02-28)
PROC: 30233N1 Transfusion of Nonautologous Red Blood Cells into Peripheral Vein, Percutaneous Approach (ICD-10-PCS; 2020-03-01)
DX: O24.425 Gestational diabetes mellitus in childbirth, controlled by oral hypoglycemic drugs (principal); O72.1 Other immediate postpartum hemorrhage; O71.3 Obstetric laceration of cervix; O32.4XX0 Maternal care for high head at term, not applicable or unspecified; O13.4 Gestational [pregnancy-induced] hypertension without significant proteinuria, complicating childbirth; O99.214 Obesity complicating childbirth; E66.9 Obesity, unspecified; O77.0 Labor and delivery complicated by meconium in amniotic fluid; O66.0 Obstructed labor due to shoulder dystocia; O76 Abnormality in fetal heart rate and rhythm complicating labor and delivery; O61.0 Failed medical induction of labor; Z3A.37 37 weeks gestation of pregnancy; Z37.0 Single live birth; O90.89 Other complications of the puerperium, not elsewhere classified; R00.0 Tachycardia, unspecified
CPT/HCPCS: 36415; 36416; 36430; 51702; 76815; 82805; 82947; 85014; 85018; 85027; 85049; 86780; 86850; 86900; 86901; 87340; 87635; J0456; J0595; J0670; J0690; J1885; J2001; J2175; J2250; J2274; J2405; J2590; J2704; J3010; J3490; J7050; P9016; S0020; U0003

== ENCOUNTER 2020-03-08 10:39 | Emergency (ER) | payer MEDICAID, OTHER ==
[2020-03-08 12:38] LABS: #Basophils 0.1 thou/uL (0.0-0.2); #Eosinphils 0.1 thou/uL (0.0-0.7); #Lymphocytes 2.1 thou/uL (1.20-3.40); #Monocytes 0.7 thou/uL (0.11-0.59); #Neutrophils 8.4 thou/uL (1.40-6.50); %Basophils 0.7 % (0.0-1.0); %Eosinophils 1.1 % (0.0-10.0); %Lymphocytes 18.5 % (21.0-51.0); %Monocytes 5.7 % (0.0-10.0); %Neutrophils 74.1 % (42.0-75.0); Hemoglobin 12.1 g/dL (12.0-16.0); Mean Corpuscular HGB CONC 33.5 g/dL (32.0-36.0); Mean Corpuscular Volume 92.4 fL (78.0-98.0); Mean Platelet Volume 7.9 fL (7.4-10.4); Platelet Count 325 thou/uL (130-400); RBC Distribution Width 12.7 % (11.5-14.5); White Blood Cell (WBC) Count 11.3 thou/uL (4.8-10.8)
[2020-03-08] MEDS ORDERED: Iopamidol-370 76% 500 ML 1 ML ONE (13:00)
[2020-03-08 13:04] LABS: ALT (SGPT) 11 U/L (8-55); AST (SGOT) 15 U/L (5-34); Albumin 3.1 g/dL (3.5-5.0); Alkaline Phosphatase 97 U/L (40-110); Anion Gap 16 mmol/L (10-20); BUN (Urea Nitrogen) 22 mg/dL (7.0-18.7); Bilirubin, Total 0.3 mg/dL (0.2-1.2); Calc. Creatinine Clearance 0 mL/min (70-130); Calcium 8.7 mg/dL (7.8-10.44); Carbon Dioxide 19 mmol/L (22-29); Chloride 107 mmol/L (98-107); Estimated GFR-MDRD 55; Globulin 3.4 g/dL (2.4-3.5); Glucose 82 mg/dL (70-105); Potassium 5.2 mmol/L (3.5-5.1); Protein, Total 6.5 g/dL (6.0-8.3); Sodium 137 mmol/L (136-145)
--- NOTE | 2020-03-08 15:04 | CT ---
CT ABDOMEN AND PELVIS WITH IV CONTRAST: Date 03/08/2020 HISTORY: Post . Abdominal pain. Fever. FINDINGS: Lung bases clear. Liver, spleen, and pancreas are unremarkable. Adrenal glands and kidneys are unrema rkable. No hydronephrosis. Urinary bladder is mildly distended, but otherwise unremarkable. Small bowel loops normal caliber. The cecum loops in the right abdomen and is located in the right up per quadrant. Appendix is probably identified and appears unremarkable. There is stool throughout the colon. The uterus is prominent, consistent with state. The endometrium is thickened with increase d blood or fluid in the endometrial cavity. No significant free fluid seen in the pelvis or abdomen. Subcutaneous haziness seen in the midline of lower abdomen consistent with postoperative changes in t he subcutaneous tissues at the incision site. Mild prominence within the abdominal wall just lateral to the rectus abdominus muscle in the lower ab domen may represent small hematoma within the abdominal wall. This measures approximately 2.0 cm AP d imension. IMPRESSION: 1. Postoperative changes consistent with recent as described above. No significant free fl uid or blood within the abdomen or pelvis. No evidence of confined fluid or abscess collection and no evidence of extraluminal gas. 2. Postoperative changes in the subcutaneous tissues at the incision site and possible small hematom a in the abdominal wall on the left just lateral to the rectus muscle. POS: AH
[2020-03-08 15:25] LABS: Bilirubin Negative (Negative); Blood, Urine 3+ (Negative); Clarity Clear (Clear); Glucose, Urine (Dipstick) Normal (Negative); Ketone, Urine Negative (Negative); Leukocyte 500 Leu/uL (Negative); Nitrite Negative (Negative); Protein, Urine (Dipstick) Negative (Neg-Trace); Specific Gravity, Urine 1.015 (1.002-1.036); Squamous Epithelial 0-3 HPF (0-3); Urobilinogen Normal mg/dL (Less than 2); WBC/HPF Greater than 50 HPF (0-3); pH, Urine 5.5 (5.0-9.0)
[2020-03-08 15:33] LABS: Bacteria/HPF None Seen HPF (None Seen)
== END 2020-03-08 16:28 | disposition home or self-care (01) ==
LOC: ERS 10:39
DX: T81.40XA Infection following a procedure, unspecified, initial encounter (principal); L03.311 Cellulitis of abdominal wall; N39.0 Urinary tract infection, site not specified
CPT/HCPCS: 36415; 74177; 80053; 81003; 81015; 85025; 87086; 96360; 96361; Q9967